=== PATIENT | female | born 1995 | race Caucasian/White ===

== ENCOUNTER → 2017-01-12 | Outpatient (REF) | LOC: WSOH 09:02 | DX: Z02.1 Encounter for pre-employment examination (principal) ==

== ENCOUNTER → 2017-01-14 | Outpatient (REF) | LOC: WSOH 15:00 | DX: Z02.89 Encounter for other administrative examinations (principal) ==

== ENCOUNTER → 2017-01-19 | Outpatient (REF) | LOC: WSOH 15:05 | DX: Z02.89 Encounter for other administrative examinations (principal) ==

== ENCOUNTER → 2017-01-21 | Outpatient (REF) | LOC: WSOH 15:51 | DX: Z02.89 Encounter for other administrative examinations (principal) ==

== ENCOUNTER → 2017-01-21 | Outpatient (REF) | LOC: WSOH 15:48 | DX: Z02.89 Encounter for other administrative examinations (principal) ==

== ENCOUNTER → 2023-07-10 | Outpatient (CLI) | payer SELFPAY | LOC: COL.EMP 20:20 | DX: Z11.52 Encounter for screening for COVID-19 (principal) ==